=== PATIENT | female | born 1970 | race Caucasian/White ===

== ENCOUNTER 2020-08-31 06:53 | Outpatient (NON) | payer OTHER, SELFPAY ==
[2020-08-31 17:45] LABS: SARS-CoV-2 RNA PCR Negative
== END 2020-08-31 06:54 ==
PROVIDERS: PCP Family Medicine; Visit Provider Physician Assistant
DX: R05 Cough (principal); Z20.828 Contact with and (suspected) exposure to other viral communicable diseases
CPT/HCPCS: 87635; C9803; U0003

== ENCOUNTER 2020-12-05 09:12 | Outpatient (CLI) | payer OTHER, SELFPAY ==
--- NOTE | ~2020-12-05 | MM_ITS ---
EXAMINATION: MM screening [facility] BI w farnaz HISTORY: Screening mammogram TECHNIQUE: Craniocaudal and mediolateral oblique 3-D tomosynthesis images were obtained and synthetic 2-D images were generated. CAD analysis was submitted and interpreted. COMPARISON: 03/30/2014, 05/04/2012 BREAST PARENCHYMAL COMPOSITION: There are scattered areas of fibroglandular density. FINDINGS: RIGHT BREAST: There is no evidence of suspicious mass, calcification, or architectural distortion to suggest malignancy. There has been no significant interval change. LEFT BREAST: There are grouped indeterminate calcifications in the posterior third of the breast best appreciated in line with the nipple on the craniocaudal view. IMPRESSION: 1. Indeterminate left breast calcifications. 2. Magnification views are recommended. BI-RADS Category 0: Incomplete: Needs additional imaging evaluation. Reviewed, dictated and finalized at location A. LER MACHINE [employer]ER
== END 2020-12-05 09:13 | disposition home or self-care (01) ==
LOC: ANHIMG 09:14
PROVIDERS: PCP Family Medicine; Visit Provider Obstetrics & Gynecology
DX: Z12.31 Encounter for screening mammogram for malignant neoplasm of breast (principal); R92.8 Other abnormal and inconclusive findings on diagnostic imaging of breast
CPT/HCPCS: 77063; 77067

== ENCOUNTER 2021-01-16 11:18 | Outpatient (CLI) | payer OTHER, SELFPAY ==
--- NOTE | ~2021-01-16 | MM_ITS ---
EXAMINATION: MM diagnostic mammo unilat LT HISTORY: Follow-up left breast calcifications TECHNIQUE: Additional 3-D tomosynthesis images of the left breast were performed and synthetic 2-D im ages were generated. CAD analysis was submitted and interpreted. COMPARISON: Comparison to multiple prior studies sequentially, with oldest reviewed study dated 02/26. BREAST PARENCHYMAL COMPOSITION: Breast composed of scattered areas of fibroglandular density. FINDINGS: There is a cluster of indeterminate calcifications in the upper outer quadrant of the left breast posteriorly. There are no suspicious masses or architectural distortion. IMPRESSION: 1. Clustered indeterminate left breast calcifications, upper outer quadrant posteriorly. 2. Stereotactic left breast biopsy recommended. BI-RADS category 4, suspicious findings. Reviewed, dictated and finalized at location A. IMPRESSION: 1. Clustered indeterminate left breast calcifications, upper outer quadrant pos teriorly. 2. Stereotactic left breast biopsy recommended. BI-RADS category 4, suspicious findings.
== END 2021-01-16 11:19 | disposition home or self-care (01) ==
LOC: ANHIMG 11:19
PROVIDERS: PCP Family Medicine; Visit Provider Obstetrics & Gynecology
DX: R92.8 Other abnormal and inconclusive findings on diagnostic imaging of breast (principal)
CPT/HCPCS: 77065

== ENCOUNTER 2021-02-08 12:22 | Outpatient (CLI) | payer OTHER, SELFPAY ==
--- NOTE | ~2021-02-08 | MM_ITS ---
EXAMINATION: MM stereotactic bx LT, MM post biopsy diagnostic LT, MM stereotactic specimen LT, Specim en Radiograph, Tissue Marker Clip Placement, Unilateral Mammogram DATE: 02/08/2021 13:59 (accession [id number]), 02/08/2021 14:02 (accession [id number]), 02/08 14:01 (accession [id number]) INDICATION: Abnormal mammogram: Clustered indeterminate microcalcifications, upper outer left breast posteriorly. TECHNIQUE AND FINDINGS: The risks and potential benefits of the procedure were discussed with the patient and written informe d consent was obtained. Timeout procedure was performed. The patient was placed in the prone position on the dedicated stereotactic table with the left breast in lateral medial compression, and the area of interest was localized and targeted utilizing digital imaging with stereotaxis. After sterile preparation of the skin, 1% lidocaine was utilized for local anesthesia at the skin pun cture site and 1% lidocaine with epinephrine was utilized for deeper local anesthesia/is about the bi opsy site. A 9G Miro vacuum assisted biopsy needle was advanced to the level of the calcification o f interest from a lateral approach utilizing stereotactic guidance and a total of 12 tissue core biop sies were obtained. A specimen radiograph demonstrates that the calcifications of interest are included within the tissue cores. A tissue marker clip was then placed at the biopsy site. A digital mammographic exposure co nfirmed the successful deployment of the biopsy marker. The needle was removed and hemostasis was ac hieved. A sterile bandage was applied. The patient tolerated the procedure well and there is no ivania dence of significant immediate complication. The patient was given verbal as well as written postpro cedural instructions prior to discharge from the department. Tissue cores were submitted to surgical pathology for histologic analysis. A 2-view left unilateral digital mammogram was obtained post procedure, demonstrating the tissue nicole er clip in expected position. IMPRESSION: 1. Successful stereotactic biopsy of posterior upper outer left breast microcalcifications, followe d by tissue marker clip placement. Please refer to pathology report for histologic analysis. Reviewed, dictated and finalized at Location A. Reviewed, dictated and finalized at location A. IMPRESSION: 1. Successful stereotactic biopsy of posterior upper outer left breast microc alcifications, followed by tissue marker clip placement. Please refer to patho logy report for histologic analysis. IMPRESSION: 1. Successful stereotactic biopsy of posterior upper outer left breast microc alcifications, followed by tissue marker clip placement. Please refer to patho logy report for histologic analysis.
== END 2021-02-08 12:23 | disposition home or self-care (01) ==
PROVIDERS: PCP Family Medicine; Visit Provider Surgery
DX: R92.8 Other abnormal and inconclusive findings on diagnostic imaging of breast (principal)
CPT/HCPCS: 19081; 77065; 88305; A4648

== ENCOUNTER 2021-03-28 14:30 | Outpatient (RCR) | payer OTHER, SELFPAY ==
[2021-02-13 12:34] VITALS: BMI 41.1
[2021-02-13 12:43] VITALS: BMI 41.1
== END 2021-04-03 08:47 | disposition home or self-care (01) ==
LOC: ANHDMC 14:30
PROVIDERS: PCP Family Medicine; Visit Provider Family Medicine
DX: E11.9 Type 2 diabetes mellitus without complications (principal); Z71.89 Other specified counseling; Z71.3 Dietary counseling and surveillance
CPT/HCPCS: 97802; G0108; G0109

== ENCOUNTER 2021-08-23 13:24 | Outpatient (CLI) | payer OTHER, SELFPAY ==
--- NOTE | ~2021-08-23 | MMUS_ITS ---
.. EXAMINATION: MM diagnostic [facility] LT w farnaz, US breast LT limited HISTORY: Six-month post stereotactic biopsy, reportedly benign TECHNIQUE: ML, MLO and cc 3-D tomosynthesis images of left breast were performed and synthetic 2-D im ages were generated. Magnification views of the left breast. CAD analysis was submitted and interpret ed. High resolution upper outer quadrant left breast ultrasound was performed. COMPARISON: 01/16/2021 diagnostic left mammogram 12/05/2020 bilateral digital screening mammogram BREAST PARENCHYMAL COMPOSITION: There are scattered areas of fibroglandular density. FINDINGS: MAMMOGRAPHIC FINDINGS: There is a biopsy marker in the upper outer quadrant of left breast with complete removal of prior in determinate microcalcifications from the upper outer quadrants 01/16/2021. Scattered benign-appearing microcalcifications are noted. There is asymmetric density in the upper outer quadrant of the left breast compared to the right. ULTRASOUND: No suspicious mass or abnormal shadowing is detected in the upper outer quadrant IMPRESSION: 1. Benign findings 2. Routine mammographic screening is recommended BI-RADS Category 2: Benign finding(s). Reviewed, dictated and finalized at location A. IMPRESSION: 1. Benign findings 2. Routine mammographic screening is recommended BI-RADS Category 2: Benign finding(s).
== END 2021-08-23 13:25 | disposition home or self-care (01) ==
LOC: ANHIMG 13:26
PROVIDERS: PCP Family Medicine; Visit Provider Surgery
DX: R92.8 Other abnormal and inconclusive findings on diagnostic imaging of breast (principal)
CPT/HCPCS: 76642; 77061; 77065; G0279

== ENCOUNTER 2022-04-19 07:10 | Outpatient (CLI) | payer OTHER, SELFPAY ==
--- NOTE | ~2022-04-19 | MM_ITS ---
EXAMINATION: MM screening [facility] BI w farnaz HISTORY: Screening TECHNIQUE: Craniocaudal and mediolateral oblique 3-D tomosynthesis images were obtained and synthetic 2-D images were generated. CAD analysis was submitted and interpreted. COMPARISON: Comparison to multiple prior studies sequentially, with oldest reviewed study dated 12/2011. BREAST PARENCHYMAL COMPOSITION: Breast composed of scattered areas of fibroglandular density FINDINGS: There is no evidence of suspicious mass, calcification, or architectural distortion to sugg est malignancy in either breast. There has been no suspicious interval change. IMPRESSION: 1. No mammographic evidence of malignancy. 2. Recommend routine screening mammography in one year. BI-RADS Category 1: Negative Reviewed, dictated and finalized at location A.
== END 2022-04-19 07:11 | disposition home or self-care (01) ==
PROVIDERS: PCP Family Medicine; Visit Provider Surgery
DX: Z12.31 Encounter for screening mammogram for malignant neoplasm of breast (principal)
CPT/HCPCS: 77063; 77067

== ENCOUNTER 2022-05-23 15:48 | Emergency (ER) | payer OTHER, SELFPAY ==
--- NOTE | ~2022-05-23 | XR_ITS ---
EXAMINATION: XR chest 2V DATE: 05/23/2022 16:20 INDICATION: Cough. TECHNIQUE: Frontal and lateral views of the chest were obtained. COMPARISON: Chest 2 views 02/12/2018 FINDINGS: There is a mass in right middle lobe. There is a small right pleural effusion. No pneumotho rax. The heart size is normal. IMPRESSION: 1. Mass in right middle lobe, consistent with pneumonia versus malignancy. Chest CT with contrast is recommended. 2. Small right pleural effusion. Reviewed, dictated and finalized at location A. IMPRESSION: 1. Mass in right middle lobe, consistent with pneumonia versus malignancy. Ches t CT with contrast is recommended. 2. Small right pleural effusion.
[2022-05-23 15:58] VITALS: BP 151/79; PULSE 81; RESP 20; TEMP 37.1; O2SAT 94
[2022-05-23 16:20] VITALS: BP 151/79; PULSE 81; RESP 20; TEMP 37.1; O2SAT 94
--- NOTE | 2022-05-23 16:21 | ED.SOB ---
HPI - SOB/Dyspnea General Chief Complaint: Shortness of Breath/Dyspnea Stated Complaint: sob Time Seen by Provider: 05/23/22 16:21 Source: patient and RN notes reviewed Mode of arrival: ambulatory Limitations: no limitations History of Present Illness HPI Narrative: 52-year-old female with a history of pneumonia, DM, HTN presented for complaint of increased shortness of breath over the past week. She endorses wheezing at night, fatigue and occasional nonproductive cough. Specifically she states she felt she needed to rest after picking up her grandson and walking from room to room. Also states she felt that she needed to get cool air while showering. States its slightly improved over the last 2 days. Denies hemoptysis, nausea, vomiting, diarrhea, fevers or chills. She has been taking [id number] medication without relief. Current daily smoker. Related Data Allergies Allergy/AdvReac Type Severity Reaction Status Date / Time No Known Allergies Allergy Verified 05/23/22 16:08 Review of Systems Review of Systems: CONSTITUTIONAL: Endorses malaise, denies chills, sweats, fever EYES: Denies visual changes, redness, or discharge ENT: Denies rhinorrhea, congestion, sinus pain, otalgia, sore throat CARDIOVASCULAR: Denies chest pain, palpitations, edema RESPIRATORY: Reports cough, dyspnea GASTROINTESTINAL: Denies abdominal pain, nausea, vomiting, diarrhea SKIN: Denies rash or itching MUSCULOSKELETAL: Denies myalgia NEUROLOGIC: Denies headache PMFSH Past Medical History Medical History Diabetes HTN (hypertension), benign Hyperlipidemia associated with type 2 diabetes mellitus Meningitis Microalbuminuria due to type 2 diabetes mellitus Obesity Tobacco abuse Usual hyperplasia of lactiferous duct Surgical History Surgical History H/O adenoidectomy H/O knee surgery H/O tubal ligation History of History of tonsillectomy Hx of cholecystectomy Intracranial shunt [place] teeth removed Family History Family History Other Diabetes mellitus Heart disease Hypertension Social History Social History Smoking packs per day: 1 Smoking cigarettes per day: 20.0 Years smoked: 35 Smoking pack-years: 35.00 Second hand tobacco smoke exposure: Yes Alcohol intake: current Alcohol use details: rarely Substance use: never Substance use type: does not use Gender identity (if verbalized by the patient): Female Spiritual care concerns: No Exam Narrative: GENERAL: Ill-appearing, nontoxic no acute distress. EYES: conjunctivae clear ENT: Mucous membranes moist. TMs pearly [place] with dull light reflex bilaterally; no tragal tenderness. NECK: Supple. No lymphadenopathy CHEST: Right middle and lower lobes diminished posteriorly, no wheezing, rhonchi, rales, or stridor. No respiratory distress, speaks in full sentences. HEART: Regular rate and rhythm. No murmur heard. SKIN: Warm, dry, no rash. NEURO: Alert and oriented x3. Course Course Emergency Course: Patient is aware of diagnosis, understands and agrees to treatment plan. Anticipatory guidance given. Patient agrees to follow-up as directed and is aware of reasons to seek care at the emergency department. Portions of this record may have been created with voice recognition software Level of Care: Express Care Visit Vital Signs Vital signs: Vital Signs Temperature 98.8 F 05/23/22 15:58 Pulse Rate 81 05/23/22 15:58 Respiratory Rate 20 05/23/22 15:58 Blood Pressure 151/79 H 05/23/22 15:58 Pulse Oximetry 94 05/23/22 15:58 Oxygen Delivery Room Air 05/23/22 15:58 Temperature 98.8 F 05/23/22 16:20 Pulse Rate 81 05/23/22 16:20 Respiratory Rate 20 05/23/22 16:20 Blood Pressure 151/79 H
== END 2022-05-23 16:47 | disposition home or self-care (01) ==
PROVIDERS: Emergency Provider Nurse Practitioner Family; PCP Family Medicine
DX: J18.1 Lobar pneumonia, unspecified organism (principal); F17.210 Nicotine dependence, cigarettes, uncomplicated; E11.9 Type 2 diabetes mellitus without complications; I10 Essential (primary) hypertension; E78.5 Hyperlipidemia, unspecified; E66.9 Obesity, unspecified; Z68.41 Body mass index [BMI] 40.0-44.9, adult; Z86.61 Personal history of infections of the central nervous system
CPT/HCPCS: 71046; 99213; G0463

== ENCOUNTER → 2022-06-07 10:35 | Outpatient (CLI) | payer OTHER, SELFPAY ==
--- NOTE | ~2022-06-07 | CT_ITS ---
EXAMINATION: CT diagnostic chest w con DATE: 06/07/2022 11:03 INDICATION: Right middle lobe mass reported on 05/23/2022 chest radiographic examination TECHNIQUE: Computed tomography (CT) of the chest was performed with 75 CC Omnipaque 350 intravenous c ontrast. Automated exposure control and iterative reconstruction technique were employed. Exam dose: 590.51 mGy-cm total exam DLP. COMPARISON: 05/23/2022, 02/12/2018 chest radiographs FINDINGS: There is amputation/occlusion of the middle lobe bronchus 2 2 right anterior hilar mass les ion with postobstructive middle lobe atelectasis/consolidation. There is right hilar, paratracheal, superior mediastinal, prevascular, aortopulmonary window and subc arinal mediastinal lymphadenopathy and mild left hilar adenopathy. Moderate right pleural effusion with associated mild right lower lobe compressive atelectasis. There are numerous small pulmonary nodules scattered throughout both lungs, likely due to extensive c ollateral pulmonary metastatic disease. Patchy bilateral groundglass lung density, which may be due to is small airways disease or/atelectasi s Thyroid goiter. No thoracic aortic aneurysm or dissection. Normal heart size. Small pericardial effusion. 1.5 x 2 cm left adrenal mass and 2 x 3 cm right adrenal mass, likely adrenal metastases secondary to lung cancer. Status post cholecystectomy. Approximately 1 cm probable left lateral segment hepatic cyst. 8.5 mm ro unded enhancing lesion of the lateral segment of the left hepatic lobe, possibly a hemangioma.. Subacute or healing anterior right fifth and healing anterior right eighth rib fractures. There is catheter in the lower thoracic and lumbar spinal canal. Diffuse idiopathic skeletal hyperostosis of the thoracic spine. IMPRESSION: Middle lobe lung cancer, with complete occlusion of middle lobe bronchus and associated postobstructive middle lobe atelectasis/consolidation and extensive bilateral pulmonary metastases Right hilar, paratracheal, superior mediastinal, prevascular, aortopulmonary window and subcarinal an d left hilar lymphadenopathy Bilateral adrenal metastases Moderate right pleural effusion Reviewed, dictated and finalized at Location A. Reviewed, dictated and finalized at location B. IMPRESSION: Middle lobe lung cancer, with complete occlusion of middle lobe br onchus and associated postobstructive middle lobe atelectasis/consolidation and extensive bilateral pulmonary metastases Right hilar, paratracheal, superior mediastinal, prevascular, aortopulmonary wi ndow and subcarinal and left hilar lymphadenopathy Bilateral adrenal metastases Moderate right pleural effusion
[2022-06-07 10:55] LABS: Estimated Glomerular Filt Rate > 60
== END ==
PROVIDERS: PCP Family Medicine; Visit Provider Physician Assistant
DX: R91.8 Other nonspecific abnormal finding of lung field (principal); J90 Pleural effusion, not elsewhere classified; C79.72 Secondary malignant neoplasm of left adrenal gland; C79.71 Secondary malignant neoplasm of right adrenal gland
CPT/HCPCS: 71260; Q9967

== ENCOUNTER 2022-08-07 16:17 | Emergency (ER) | payer OTHER, SELFPAY ==
[2022-08-07] VITALS (36 sets, daily range): BP systolic 94–135; BP diastolic 62–97; PULSE 72–107; RESP 11–21; TEMP 36.8; O2SAT 90–100
--- NOTE | ~2022-08-07 | CT_ITS ---
EXAMINATION: CT brain wo con DATE: 08/07/2022 18:03 INDICATION: Unresponsive. TECHNIQUE: Computed tomography (CT) of the head was performed without intravenous contrast. The mA wa s adjusted according to patient size. Iterative reconstruction technique was employed. The dose-lengt h product was 605.33 mGy-cm. COMPARISON: Head CT 05/06/2007 FINDINGS: There is no intracranial hemorrhage, acute infarction, or abnormal intracranial mass lesion . The ventricles are normal in size. There is mucosal thickening in the paranasal sinuses. The orbits are normal. The mastoid air cells are normal. There is a permeative lytic lesion in right parietal b one. There is a permeative lytic lesion in the left occipital bone. IMPRESSION: 1. Lytic lesions of bone, consistent with metastatic disease. 2. Normal brain. Reviewed, dictated and finalized at location A.
--- NOTE | ~2022-08-07 | CT_ITS ---
EXAMINATION: CT chest abdomen pelvis w con DATE: 08/07/2022 18:10 INDICATION: UNRESPONSIVE . TECHNIQUE: Computed tomography (CT) of the chest, abdomen, and pelvis was performed with 100 mL Omnip aque-350 intravenous contrast. Automated exposure control and iterative reconstruction technique were employed. The dose-length product was 1899.86 mGy-cm. COMPARISON: CT chest 06/07/2022 FINDINGS: Endotracheal tube, terminating at the kimberly. NG tube, in good position. Small bore right chest drain which coils in the pleural cavity and terminates in the major fissure. Implanted right chest port, t erminating in the SVC. Thoracic aorta: No significant dilation or calcification. Lung parenchyma and airways: Innumerable bilateral pulmonary nodules. Dependent left lung consolidati on. Peripheral, dependent and basilar right lung consolidation. Thoracic inlet, axillae and chest wall: 3.3 cm left inferior thyroid mass. Mediastinum: Extensive mediastinal lymphadenopathy. Upper mediastinal lymphadenopathy likely occludes the distal subclavian vein. Numerous collateral vessels fill with contrast in the right chest and lo wer neck. Heart and pericardium: Normal heart size. Moderate volume pericardial fluid. Coronary artery calcifications: Absent. Pleura: Large loculated right pleural effusion. Small volume left pleural effusion. Thoracic bones: No acute osseous finding in the chest. ABDOMEN/PELVIS: Liver: Enlarged. Biliary/Gallbladder: Gallbladder is absent. No bile duct dilation. Pancreas: No mass or duct dilation. Spleen: Normal. Adrenals:Bilateral adrenal metastases Kidneys: No mass, stone, or hydronephrosis. Bilateral hypodensities, too small to characterize but li jose m represent cysts. GI tract: No small or large bowel dilation. Normal appendix. Mesentery/Peritoneum: Minimal ascites ascites, no mass or free air. Retroperitoneum: No mass Pelvis: Small volume free pelvic fluid. The bladder is decompressed by a Arnold. Soft Tissues: Body wall edema. Abdominopelvic bones: No acute osseous finding in the abdomen/pelvis. IMPRESSION: Endotracheal tube terminates at the kimberly, consider a 3 cm retraction. Right peripheral and basilar, and bilateral dependent heterogeneous consolidation, concerning for infection. Large loculated right and small left pleural effusions. Moderate pericardial effusion. 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 Chronic and incidental findings, including pulmonary malignancy with metastases, describe d in more detail above. Reviewed, dictated and finalized at location K. IMPRESSION: Endotracheal tube terminates at the kimberly, consider a 3 cm retraction. Right p eripheral and basilar, and bilateral dependent heterogeneous consolidation, con cerning for infection. Large loculated right and small left pleural effusions. Moderate pericardial effusion. 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 C hronic and incidental findings, including pulmonary malignancy with metastases, described in more detail above.
--- NOTE | ~2022-08-07 | XR_ITS ---
EXAMINATION: XR chest ET placement DATE: 08/07/2022 16:53 INDICATION: Unresponsive. TECHNIQUE: A single frontal view of the chest was obtained. COMPARISON: Chest 2 views 05/23/2022, chest CT 06/07/2022 FINDINGS: There are airspace opacities in all lung zones bilaterally. There is a moderate-sized right pleural effusion with pleural catheter. No pneumothorax. Cardiomegaly is noted. The endotracheal tub e tip is 2 mm below the kimberly. The nasogastric tube tip is beyond the inferior margin of the radiogr aph, but at least to the stomach. There is a right internal jugular port with tip in superior vena ca va. IMPRESSION: 1. Endotracheal tube tip 2 mm above the kimberly. Retraction is recommended. 2. Diffuse lung disease, consistent with pulmonary edema versus pneumonia and right perihilar maligna ncy. 3. Moderate-sized right pleural effusion with pleural catheter. 4. Cardiomegaly. Reviewed, dictated and finalized at location A. IMPRESSION: 1. Endotracheal tube tip 2 mm above the kimberly. Retraction is recommended. 2. Diffuse lung disease, consistent with pulmonary edema versus pneumonia and r ight perihilar malignancy. 3. Moderate-sized right pleural effusion with pleural catheter. 4. Cardiomegaly.
--- NOTE | ~2022-08-07 | XR_ITS ---
EXAMINATION: XR abdomen NG/feed tube insert DATE: 08/07/2022 16:59 INDICATION: Nasogastric tube placement. TECHNIQUE: A supine view of the abdomen was obtained. COMPARISON: CT abdomen and pelvis 02/18/2012 FINDINGS: There are no dilated loops of bowel. The nasogastric tube tip is in the stomach. Surgical c lips in the right upper quadrant are likely from cholecystectomy. Again seen is a spine-peritoneal ca theter. IMPRESSION: 1. Nasogastric tube tip in the stomach. Reviewed, dictated and finalized at location A.
--- NOTE | 2022-08-07 16:19 | ECG_ITS ---
Measurements Intervals [place] Rate: 102 P: 71 OR: 128 QRS: 89 QRSD: 88 T: 20 QT: 326 QTc: 425 Interpretive Statements SINUS TACHYCARDIA BASELINE ARTIFACT LOW VOLTAGE IN EXTREMITY LEADS POOR R-WAVE PROGRESSION ABNORMAL RHYTHM ECG NO PREVIOUS ECG AVAILABLE FOR COMPARISON Electronically Signed On 08-08-2022 17:08:23 CDT by Brandee Cedillo M.D.
--- NOTE | 2022-08-07 16:25 | ED.GENADULT ---
HPI - General Adult General Chief complaint: Unspecified <Carol Ghosh III, DO - Last Filed: 09/02/22 14:36> Stated complaint: unresponsive <Carol Ghosh III, DO - Last Filed: 09/02/22 14:36> Time Seen by Provider: 08/07/22 16:19 <Carol Ghosh III, DO - Last Filed: 09/02/22 14:36> History of Present Illness HPI narrative: Pt presents after being found unresponsive at home. Pt was a little drowsy around noon today and not her normal self but was still responding. Caregiver took a brief nap for about an hour and when they awoke the patient was unresponsive. 911 was called. On EMS arrival pt was breathing 5 times a minute and was intubated. On arrival here pt was unresponsive. <Carol Ghosh III, DO - Last Filed: 09/02/22 14:36> Related Data Allergies/adverse reactions: Allergies Allergy/AdvReac Type Severity Reaction Status Date / Time No Known Allergies Allergy Verified 05/30/22 10:52 <Carol Ghosh III, DO - Last Filed: 09/02/22 14:36> Review of Systems Review of Systems: ROS unobtainable: Yes unobtainable due to mental status <Carol Ghosh III, DO - Last Filed: 09/02/22 14:36> [facility] Past Medical History Medical History: Medical History Diabetes HTN (hypertension), benign Hyperlipidemia associated with type 2 diabetes mellitus Meningitis Microalbuminuria due to type 2 diabetes mellitus Obesity Tobacco abuse Usual hyperplasia of lactiferous duct <Carol Ghosh III, DO - Last Filed: 09/02/22 14:36> Surgical History Surgical History: Surgical History H/O adenoidectomy H/O knee surgery H/O tubal ligation History of History of tonsillectomy Hx of cholecystectomy Intracranial shunt [place] teeth removed <Carol De Leonver III, DO - Last Filed: 09/02/22 14:36> Family History Family History: Family History (Reviewed 05/30/22 @ 10:54 by Beena Jaramillo [facility]) Other Diabetes mellitus Heart disease Hypertension <Carol Vlad Ghosh III, DO - Last Filed: 09/02/22 14:36> Social History Social History: Social History (Updated 05/30/22 @ 10:55 by Beena Jaramillo [facility]) Years smoked: 35 Smoking status: Current every day smoker Second hand tobacco smoke exposure: Yes Alcohol intake: current Alcohol use details: rarely Substance use: never Substance use type: does not use Gender identity (if verbalized by the patient): Female Spiritual care concerns: No <Carol Vlad Ghosh III, DO - Last Filed: 09/02/22 14:36> Exam Const: Nutritional Appearance: overweight <Carol Vlad Ghosh III, DO - Last Filed: 09/02/22 14:36> Orientation/consciousness: patient obtunded <Carol Vlad Ghosh III, DO - Last Filed: 09/02/22 14:36> Limitations: altered mental status <Carol Vlad Ghosh III, DO - Last Filed: 09/02/22 14:36> HENMT: Head: normal to inspection <Carol Vlad Ghosh III, DO - Last Filed: 09/02/22 14:36> Eyes: Other: pupils dilated but reactive b/l <Carol Vlad Ghosh III, DO - Last Filed: 09/02/22 14:36> Neck: Neck: normal visual inspection and no lymphadenopathy <Carol Vlad Ghosh III, DO - Last Filed: 09/02/22 14:36> Chest: Chest palpation & inspection: other (chest tube in right chest) <Carol Vlad Ghosh III, DO - Last Filed: 09/02/22 14:36> Resp: Effort & Inspection: symmetric chest movement <Carol Vlad Ghosh III, DO - Last Filed: 09/02/22 14:36> Auscultation: rales <Carol Vlad Ghosh III, DO - Last Filed: 09/02/22 14:36> Cardio: Rate: regular rate <Carol Vlad Ghosh III, DO - Last Filed: 09/02/22 14:36> Rhythm: regular rhythm <Carol Vlad Ghosh III, DO - Last Filed: 09/02/22 14:36> GI: Inspection: normal to inspection <Carol Vlad Ghosh III, DO - Last Filed: 09/02/22 14:36> GI Palp: Yes Soft to palpation <Carol Ghosh III, DO - Last Filed: 09/02/22 14
[2022-08-07 16:51] LABS: Basophils Percent Auto 0.1 % (0.2-1.2); Hematocrit 45.1 % (37.0-47.0); Hemoglobin 13.1 g/dL (12.0-15.0); Immature Granulocyte Absolute 0.18 K/mm3 (0.00-0.031); Immature Granulocyte Percent A 1.2 % (0-0.5); Lymphocytes Absolute Auto 0.05 K/mm3 (0.9-3.2); Lymphocytes Percent Auto 0.3 % (18.3-44.2); Mean Corpuscular Hemoglobin 27.8 pg (26-34); Mean Corpuscular Volume 95.6 fl (80-100); Mean Platelet Volume 9.1 fl (7.4-10.4); Monocytes Absolute Auto 0.7 K/mm3 (0.1-0.6); Monocytes Percent Auto 4.6 % (2.6-8.5); Neutrophils Percent Auto 93.8 % (45.5-73.1); Nucleated Red Blood Cells Absolute Auto 0.1 K/mm3 (0.0-0.012); Nucleated Red Blood Cells Perc 0.4 % (0.0-0.2); Platelet Count Result 230 k/mm3 (150-375); Red Blood Count 4.72 M/mm3 (4.2-5.4); Red Cell Distribution Width 16.8 % (11.5-14.5); White Blood Count 14.9 K/mm3 (4.5-10.0)
[2022-08-07] MEDS: SODIUM CHLORIDE 0.9% IV 1,000 ML 999 ML IV CONT (16:51)
[2022-08-07] MEDS: MIDAZOLAM HCL (*CRX) 2 MG/2 ML VIAL 4 MG IV PUSH (16:52)
[2022-08-07] MEDS: PROPOFOL IV EMULSION 200 MG/20 ML VIAL 50 MG IV PUSH ×2 (17:00→18:43)
[2022-08-07 17:09] LABS: Alanine Aminotransferase 16 U/L (6-35); Albumin Level 3.7 g/dL (3.5-5.1); Alkaline Phosphatase 80 U/L (38-126); Anion Gap 11 mmol/L (8-16); Aspartate Amino Transferase 23 U/L (14-36); Bilirubin,Total 0.5 mg/dL (0.2-1.3); Blood Urea Nitrogen 53 mg/dL (7-17); Calcium 9.1 mg/dL (8.4-10.2); Carbon Dioxide 33 mmol/L (22-30); Chloride 95 mmol/L (98-107); Estimated CRCL calculation 55 ml/min; Estimated Glomerular Filt Rate 43; Glucose 253 mg/dL (65-110); Potassium 6.4 mmol/L (3.4-5.0); Sodium 139 mmol/L (137-145)
[2022-08-07 17:11] LABS: Acetaminophen < 10 ug/mL (10-30); Ethanol < 10 mg/dL (<10); Salicylate < 1.0 mg/dL (2-20)
[2022-08-07] MEDS: PROPOFOL IV EMULSION 100 ML 3.35 MG IV CONT (17:11)
[2022-08-07 17:17] LABS: Troponin I 0.034 ng/mL (0.000-0.034)
[2022-08-07 17:19] LABS: INR 2.3; Prothrombin Time 24.8 Seconds (11.1-14.7)
[2022-08-07 17:20] LABS: Partial Thromboplastin Time 30.5 SECONDS (22.3-36.8)
[2022-08-07 17:30] LABS: Appearance Urine Cloudy (Clear); Bilirubin Urine 2+ (Negative); Blood Urine Trace-lysed (Negative); Color Urine Yellow (Yellow); Glucose Urine UA 2+ mg/dL (Negative); Ketones Urine Negative (Negative); Leukocyte Esterase Ur Negative LEU/UL (Negative); Nitrate Urine Negative (Negative); Protein Urine 2+ mg/dL (Negative); Specific Grav Ur >= 1.030 (1.001-1.035); Urobilinogen Urine 0.2 mg/dL (<2.0)
[2022-08-07 17:36] LABS: Thyroid Stimulating Hormone 0.713 uIU/mL (0.465-4.680)
[2022-08-07 17:36] LABS: Bacteria Urine 4+ /hpf; Mucus Urine Heavy /lpf; WBC Urine 0-3 /hpf
[2022-08-07 17:42] LABS: Lactic Acid Reflex 1.7 mmol/L (0.7-2.0)
[2022-08-07 17:52] LABS: Anisocytosis 2+ (NORMAL); Hypochromasia 1+ (NORMAL); Platelet Estimate Adequate (Adequate)
[2022-08-07 18:06] LABS: Ammonia < 9 umol/L (9-30)
[2022-08-07 18:08] LABS: Amphetamine Screen Urine Negative (Negative); Barbiturate Screen Urine Negative (Negative); Benzodiazepines Screen Urine Positive (Negative); Cannabinoid Screen Urine Positive (Negative); Cocaine Screen Urine Negative (Negative); Methadone Screen Urine Negative (Negative); Opiate Screen Urine Positive (Negative); Phencyclidine Screen Urine Negative (Negative)
[2022-08-07 18:11] LABS: Add Urine Microscopic? YES
[2022-08-07] MEDS: INSULIN HUMAN REGULAR (*BKC) 100 UNITS/ML 6 UNITS IV PUSH (18:37)
[2022-08-07] MEDS: CALCIUM CHLOR 1,000MG/100ML NS 1,000 MG/100 ML BAG 100 MG IVPB (19:17)
--- NOTE | 2022-08-07 19:30 | PC.NURSE ---
Gerson Rojas [phone]
--- NOTE | 2022-08-07 19:48 | PC.NURSE ---
dr hobbs, stated to change bolus to IBW. this was 57kg to cancel 3300 bolus and give 500 ml as pt had received 1l prior
[2022-08-07] MEDS: SODIUM CHLORIDE 0.9% IV 500 ML 999 ML IV CONT (20:06)
[2022-08-07 21:00] LABS: SARS-CoV-2 RNA PCR Negative
[2022-08-08] VITALS (22 sets, daily range): BP systolic 94–118; BP diastolic 32–85; PULSE 80–109; RESP 12–23; O2SAT 91–100
[2022-08-08 00:43] LABS: Alveolar/Arterial O2 Gradient 244.3 mmHg; Base Excess ABG 4.5 mEq/l (+/-2.0); Carboxyhemoglobin 0.7 % THb (0-2.0); Fractional Inspired Oxygen 50 %; HCO3 ABG 30.1 mEq/l (22.0-26.0); Methemoglobin ABG 0.1 %THb (0-1.5); Oxygen Saturation ABG 89.7 % (95.0-100.0); Oxyhemoglobin 88.9 % THb (90.0-100.0); PCO2 ABG 48.9 mmHg (35.0-45.0); PO2 ABG 57.2 mmHg (80.0-100.0); PO2 FiO2 Ratio Arterial Blood 1.14 %; Reduced Hemoglobin 10.3 %THb (0-5.0); Total Hemoglobin 12.8 g/dL (12.0-18.0); pH ABG 7.407 (7.350-7.450)
[2022-08-08 00:45] LABS: Arterial Blood Gas PEEP 5 cmH2O; Arterial Blood Gas Tidal Volume 450 ml; Arterial Blood Gas Vent Mode CMV; Arterial Blood Gas Ventilator rate 18 /MIN; Device VENTILATOR; Modified Allen's Test Pass; Site Drawn RIGHT RADIAL
--- NOTE | 2022-08-08 00:48 | PC.NURSE ---
Called [facility] Transfer Line for status on bed at [facility]. They were hoping it would be sooner than later that a bed would become available, but it doesn't look like it will be until morning sometime.
--- NOTE | 2022-08-08 01:06 | PM.IMHP ---
H&P: HPI History of Present Illness Date/Time: 08/08/22 01:06 Chief Complaint: altered mental status Narrative: This is a 52-year-old female with past medical history significant for metastatic lung adenocarcinoma, tobacco dependence, obesity, type diabetes mellitus, dyslipidemia, hypertension. patient was brought to the emergency room after she was found unresponsive. Most of the history has been obtained upon reviewing medical records emergency room records and preliminary workup findings patient is on ventilator support at the time of my visit. preliminary workup was significant for ABG with a pH of 7.4 pCO2 of 48 a PO2 of 57. a CT of chest abdomen and pelvis was reported as; IMPRESSION: Endotracheal tube terminates at the kimber[place], consider a 3 cm retraction. Right peripheral and basilar, and bilateral dependent heterogeneous consolidation, concerning for infection. Large loculated right and small left pleural effusions. Moderate pericardial effusion. 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 Chronic and incidental findings, including pulmonary malignancy with metastases, described in more detail above. head CT IMPRESSION: 1. Lytic lesions of bone, consistent with metastatic disease. 2. Normal brain. Review of Systems Review of Systems: ROS unobtainable: Yes unobtainable due to medical condition ( on ventilator support) [facility] Past Medical History Medical History Diabetes HTN (hypertension), benign Hyperlipidemia associated with type 2 diabetes mellitus Meningitis Microalbuminuria due to type 2 diabetes mellitus Obesity Tobacco abuse Usual hyperplasia of lactiferous duct Surgical History Surgical History H/O adenoidectomy H/O knee surgery H/O tubal ligation History of History of tonsillectomy Hx of cholecystectomy Intracranial shunt Scroggins teeth removed Family History Family History Other Diabetes mellitus Heart disease Hypertension Social History Social History (Updated 05/30/22 @ 10:55 by Beena Jaramillo CMA) Years smoked: 35 Smoking status: Current every day smoker Second hand tobacco smoke exposure: Yes Alcohol intake: current Alcohol use details: rarely Substance use: never Substance use type: does not use Gender identity (if verbalized by the patient): Female Spiritual care concerns: No Meds Home Medications and Allergies Home Medications Medication Instructions Recorded Confirmed Type lancets 30 gauge (OneTouch Delica #100 ea 05/04/21 05/30/22 Rx Plus Lancet) blood sugar diagnostic (OneTouch #100 ea 12/09/21 05/30/22 Rx Verio test strips) glipizide 5 mg tablet 5 mg PO BID #60 tabs 03/06/22 05/30/22 Rx atorvastatin 10 mg tablet (Lipitor) 10 mg PO DAILY #90 tabs 05/07/22 05/30/22 Rx empagliflozin 10 mg tablet 10 mg PO DAILY #90 tabs 05/07/22 05/30/22 Rx lisinopril 20 mg tablet 20 mg PO DAILY #90 tabs 05/07/22 05/30/22 Rx metoprolol tartrate 50 mg tablet 50 mg PO BID #180 tabs 05/07/22 05/30/22 Rx varenicline 0.5 mg (11)-1 mg (42) See Rx Instructions PO PER PKG DIR 06/07/22 Rx tablets in a dose pack #53 ea oxycodone 5 mg tablet 5 mg PO Q4H PRN pain #60 tabs 07/15/22 Rx tizanidine 2 mg capsule 2 mg PO .HS muscle spasticity #30 07/19/22 Rx caps metformin 1,000 mg tablet 500 mg PO BID #180 tabs 07/29/22 Rx alprazolam 0.5 mg tablet 0.5 mg PO TID PRN anxiety #60 tabs 07/30/22 Rx citalopram 10 mg tablet 10 mg PO DAILY #30 tabs 08/02/22 Rx Allergies Allergy/AdvReac Type Severity Reaction Status Date / Time No Known Allergies Allergy Verified 05/30/22 10:52 Vital Signs Vital Signs - 24 hr 08/07/22 16:13 08/07/22 17:11 08/07/22 16:33 Temperature 98.2 F Pulse Rate 107 H 100 81 Respiratory Rate 20 16 Blood Pressure Pulse Oximetry 100 10
--- NOTE | 2022-08-08 03:53 | PC.NURSE ---
Patietn left with propofol drip running
== END 2022-08-08 03:53 | disposition short-term general hospital (02) ==
LOC: ANHED 08-08 00:58 → ANHICU 08-08 02:27
PROVIDERS: Emergency Medicine; Emergency Provider Emergency Medicine; PCP Family Medicine
DX: J96.90 Respiratory failure, unspecified, unspecified whether with hypoxia or hypercapnia (principal); J86.9 Pyothorax without fistula; K92.2 Gastrointestinal hemorrhage, unspecified; E87.5 Hyperkalemia; C34.90 Malignant neoplasm of unspecified part of unspecified bronchus or lung; C79.51 Secondary malignant neoplasm of bone; Z20.822 Contact with and (suspected) exposure to COVID-19; E11.69 Type 2 diabetes mellitus with other specified complication; E78.5 Hyperlipidemia, unspecified; R80.9 Proteinuria, unspecified; I10 Essential (primary) hypertension; E66.9 Obesity, unspecified; Z68.41 Body mass index [BMI] 40.0-44.9, adult; F17.200 Nicotine dependence, unspecified, uncomplicated; Z79.84 Long term (current) use of oral hypoglycemic drugs; R00.0 Tachycardia, unspecified; R94.31 Abnormal electrocardiogram [ECG] [EKG]; I51.7 Cardiomegaly; J98.4 Other disorders of lung; J90 Pleural effusion, not elsewhere classified
CPT/HCPCS: 36415; 36600; 51702; 70450; 71260; 74177; 80053; 80307; 81001; 82140; 82375; 82805; 83050; 83605; 84443; 84484; 85025; 85610; 85730; 87040; 87147; 87181; 87186; 93005; 96361; 96365; 96366; 96367; 96368; 96375; 96376; 99291; C9803; J0696; J0743; J1815; J2250; J2704; J3370; J7030; J7040; Q9967; U0003; U0005